=== PATIENT | female | born 1970 ===

== ENCOUNTER 2021-09-19 05:32 | Day surgery (SDC) | payer OTHER ==
[2021-09-19] MEDS ORDERED: ULTRACET PO (11:23)
[2021-09-19] MEDS ORDERED: DICLOFENAC POTA50 MG PO (11:25)
[2021-09-19] MEDS ORDERED: COLACE100 MG PO (11:26)
== END 2021-09-19 14:10 | disposition home or self-care (01) ==
LOC: CIR.AMB 05:32
PROVIDERS: ATTEND Obstetrics & Gynecology
DX: N83.292 Other ovarian cyst, left side (principal); N83.8 Other noninflammatory disorders of ovary, fallopian tube and broad ligament; E66.01 Morbid (severe) obesity due to excess calories; G43.909 Migraine, unspecified, not intractable, without status migrainosus; Z20.822 Contact with and (suspected) exposure to COVID-19